=== PATIENT | female | born 1960 | race Caucasian/White ===

== ENCOUNTER 2020-08-10 11:09 | Outpatient (REF) | payer OTHER, SELFPAY ==
[2020-08-10 11:31] LABS: COVID-19 Test Negative (Negative)
== END 2020-08-10 11:10 | disposition home or self-care (01) ==
LOC: HO.EMPCOV 11:09
PROVIDERS: Visit Provider Internal Medicine
DX: Z20.828 Contact with and (suspected) exposure to other viral communicable diseases (principal)
CPT/HCPCS: 87635; C9803

== ENCOUNTER → 2021-05-03 15:58 | Outpatient (BNVA) | payer OTHER, SELFPAY | PROVIDERS: PCP Internal Medicine | DX: Z13.89 Encounter for screening for other disorder (principal) | CPT/HCPCS: 73110; 73564; 99203 ==

== ENCOUNTER → 2021-05-15 09:35 | Outpatient (BNVA) | payer OTHER, SELFPAY | PROVIDERS: PCP Internal Medicine; Visit Provider Physician Assistant Medical | DX: Z13.89 Encounter for screening for other disorder (principal) | CPT/HCPCS: 99213 ==

== ENCOUNTER → 2021-06-05 14:27 | Outpatient (BNVA) | payer OTHER, SELFPAY | PROVIDERS: PCP Internal Medicine; Visit Provider Physician Assistant Medical | DX: Z13.89 Encounter for screening for other disorder (principal) | CPT/HCPCS: 73200; 99213 ==

== ENCOUNTER 2021-06-19 10:00 | Outpatient (RCR) | payer OTHER, SELFPAY ==
--- NOTE | 2021-06-19 10:30 | MHC.OT.EP ---
[address] [phone] Occupational Therapy Plan of Care Date of Evaluation: 06/14/21 Diagnosis: Left wrist injury. Left MCL sprain, cervical strain Assessment: Pt is a 60 yo right hand dominant, petite female now 2 wks s/p fall on bilateral hands. She presents with a complaint of pain on left radial hand and thumb with an xray showing mild MCP arthritis. Pt wearing a prefab wrist splint . Pt now with weakness and difficulty with light daily activities due to bilateral thumb pain. She will benefit from a left hand based thumb spica with her IP jt free for protection and inc ease with daily activities and OT to help regain ROM, strength and function with her left non dominant hand Frequency and Duration: The patient will be seen 2x wk x 4 wks Short Term Goals: Indep with self ROM and light dexterity ex MET Dec pain with use of hand based thumb spica MET Left IP jt flex to > 45 deg MET Demo protected hand strengthening ex MET Snf Goals: Painfree left hand AROM Left die tripper > 15 lb (At 15 lb with pain) Left lat pinch to >8 lb (at 3 lb ) Inc ease with dressing, pulling on clothes, buttons etc Quick DASH to < 30 lb Treatment Plan: Therapeutic Exercise Therapeutic Activity Home Exercise Program Splinting Patient Education ADL Training Paraffin Fluidotherapy MHP Cold Packs Soft Tissue Mobilization Kinesiotaping Electronically Signed By: SHELTON HAWKINS OTR/L Please Sign and return to therapist. Thank you once again for your referral.
== END 2021-06-19 10:32 | disposition home or self-care (01) ==
LOC: HO.OT 10:00
PROVIDERS: Visit Provider Physician Assistant Medical
DX: S16.1XXD Strain of muscle, fascia and tendon at neck level, subsequent encounter (principal); S69.92XD Unspecified injury of left wrist, hand and finger(s), subsequent encounter
CPT/HCPCS: 29130; 97035; 97110; 97140; 97165; 97530; 97760

== ENCOUNTER → 2021-06-21 10:01 | Outpatient (BNVA) | payer OTHER, SELFPAY | PROVIDERS: PCP Internal Medicine; Visit Provider Physician Assistant Medical | DX: Z13.89 Encounter for screening for other disorder (principal) | CPT/HCPCS: 99213 ==

== ENCOUNTER 2021-06-28 09:30 | Outpatient (RCR) | payer OTHER, SELFPAY ==
--- NOTE | 2021-07-25 08:22 | MHC.OT.DC ---
[address] [phone] F: [phone] Occupational Therapy Discharge Note Provider: Arielle Garner PA-C Diagnosis: Left wrist injury. Left MCL sprain, cervical strain Date of Surgery: Date of Evaluation: 05/17/21 Date of Discharge: 07/25/21 Treatments to Date: 11 Cancellations to Date: No Shows to Date: Discharge Status: Independent with HEP Patient Elected to Stop Discharge Summary: Improving jt pain. Dec frequency and dec intensity of pain at 2/10 with avoiding hobbies of gardening, sewing and piano due to fear of injury. Bilateral hand strength low at R 23 lb....L 22 lb Pt expressing feeling she can manage strengthening exercises at home Electronically Signed By: Nicolle Curiel OT CHT CLT Reviewed/agree with student documentation: N/A Therapist: Please Sign and return to therapist, thank you for your referral.
== END 2021-07-25 08:22 | disposition home or self-care (01) ==
LOC: HO.OT 09:30
PROVIDERS: Visit Provider Physician Assistant Medical
DX: S69.92XD Unspecified injury of left wrist, hand and finger(s), subsequent encounter (principal)
CPT/HCPCS: 97110

== ENCOUNTER 2021-07-03 16:00 | Outpatient (RCR) | payer OTHER, SELFPAY ==
--- NOTE | 2021-05-22 17:12 | MHC.PT.EP ---
[facility] [place] [facility] [place] [facility] [place] Office [address] Deidre Paniagua [address] [phone] F: [phone] F: [phone] F: [phone] F: [phone] Physical Therapy Plan of Care Date of Evaluation: Date of Surgery: n/a Diagnosis: L MCL sprain Assessment: Patient is a 60 year old female presenting to PT with complaints of pain in her L knee. Pt reports onset of pain began 05/03/2021 due to slipping and falling. She presents today with impairments in pain, knee strength, hip strength, and balance impairments. 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 Pt expresses senior care goal of getting back to PLOF, and is motivated to work towards this in PT. Clinical presentation today is most consistent with signs and sx associated with possible L MCL sprain and pt will benefit from skilled PT to address the following problems and impairments noted upon evaluation: knee strength, balance, hip strength, quad muscle length, and pain. These problems limit the patient with the following functional activities: work, ambulation, stair negotiation, squatting, jumping, yoga. The prescribed treatment plan of care is medically necessary. Co-morbidities of osteopenia were identified and taken into considerations of plan of care. Pt was educated on HEP, role of PT, prognosis, POC. Frequency and Duration: The patient will be seen 2x week for 4 weeks Short Term Goals: Pt will demonstrate improved hip strength by 1/3 MMT in 2 weeks for improved tolerance to stair negotiation. Pt will demonstrate independence with HEP in 2 weeks. Pt will demonstrate improved quad muscle length on L to equal B as evidence by negative prone quad test in 2 weeks. Pt will demonstrate ability to perform SLS on L x 30 sec with min sway in 2 weeks for improved single limb stability with gait and stairs. Block Breaker Goals: Pt will demonstrate ability to ambulate >10 min with min to no reports of pain in 4 weeks to improve access to the community and walking from the parking lot to work. 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 Pt will demonstrate ability to perform jumping jacks with min to no pain in 4 weeks to allow return to prior level of exercise function. Pt will demonstrate ability to perform a squat with good mechanics and min to no pain in 4 weeks to improve tolerance to picking up objects off the floor. Treatment Plan: Modalities to reduce pain, spasms and effusion. Manual therapy to restore motion and function. Therapeutic exercise to improve strength and flexibility. Neuromuscular re-education for posture and balance. Therapeutic activities to return to functional activities of daily living. Electronically signed by: Divine Beach, PT, DPT, ATC Please sign and return to therapist. Thank you for your referral.
--- NOTE | 2021-07-03 17:11 | MHC.PT.DC ---
[facility] [place] Office [place] Office [place] Office [address] Deidre Paniagua [address] [phone] F: [phone] F: [phone] F: [phone] F: [phone] Physical Therapy Discharge Report Diagnosis: L MCL sprain Date of Surgery: n/a Date of Evaluation: 05/22/21 Date of Discharge: 07/03/21 Treatments to Date: 12 Cancellations to Date: 0 No Shows to Date: 0 Discharge Status: Achieved Goals Improved Function Independent with HEP Discharge Summary: Pt has made good progress with skilled PT. She is no longer experiencing pain at rest and has met the majority of her functional goals. She does still have some low level pain at times when doing things that involving deep squats and jumping activities but in general she has improved greatly functionally. She is independent and compliant with her HEP. At this time max benefits of PT have been provided and skilled PT is no longer indicated at this time. Pt is in agreement with d/c today and understands importance of continuing with her HEP. Electronically signed by: Divine Beach, PT, DPT, ATC Please sign and return to therapist. Thank you for your referral.
== END 2021-07-03 17:12 | disposition home or self-care (01) ==
LOC: HO.PT 16:00
PROVIDERS: Visit Provider Physician Assistant Medical
DX: S16.1XXD Strain of muscle, fascia and tendon at neck level, subsequent encounter (principal); S69.92XD Unspecified injury of left wrist, hand and finger(s), subsequent encounter; S13.9XXD Sprain of joints and ligaments of unspecified parts of neck, subsequent encounter
CPT/HCPCS: 97110; 97140; 97161; 97530

== ENCOUNTER → 2021-07-10 09:38 | Outpatient (BNVA) | payer OTHER, SELFPAY | PROVIDERS: PCP Internal Medicine; Visit Provider Physician Assistant Medical | DX: Z13.89 Encounter for screening for other disorder (principal) | CPT/HCPCS: 99213 ==

== ENCOUNTER 2022-02-19 13:59 | Outpatient (REF) | payer OTHER, SELFPAY ==
--- NOTE | 2022-02-19 16:47 | MHC.AU.ANR ---
Adult Audiological Evaluation Date of Visit: 02/19/22 Reason for Appointment: Audiological evaluation due to concern for decreased hearing. Sandhya reports that her hearing seems to be gradually decreasing, with noted difficulties hearing over the past year. Sandhya notes that she often has to ask people to repeat themselves, she's turning the TV volume up, and she has difficulty in the presence of background noise. She states that her right ear feels full and blocked. She reports tinnitus in the left ear only. Does patient feel they have a hearing loss?: Yes If Yes, Which Ear?: Both Ears When Was Hearing Difficulty First Noticed?: ~1 year ago Has hearing been tested previously?: Yes Previous Hearing Test Results: Hearing screening at our clinic in 2000 indicated normal hearing bilaterally from 500-4000 Hz. Hearing Handicap Inventory: HHIE SCORE: 28 Based on HHIE score, patient has: Severe perceived hearing handicap Ear History: Bothersome Tinnitus/Ringing/Noises in Ears: Left Ear Blocked/Full Sensation in Ear(s): Right Ear Medical History: Medical History: Dizziness or Unsteadiness Allergies: cimetidine, ampicillin Medication List: Calcium alterate 1500 mg + 1000 mg daily (with Vitamin D), Pseudoephedrine 30 mg q 6hr PRN, diphenhydramine 25 mg q 6hr PRN, Tylenol 500 mg-1 gm q 4-6 hr PRN Otoscopy: Right Ear: Tympanic membrane is retracted Left Ear: Unremarkable Tympanometry: Tympanometry performed due to: Patient reports sensation of aural fullness Right Ear: Normal Middle Ear System (Type A) Left Ear: Normal Middle Ear System (Type A) Hearing Evaluation: Transducer(s) Used: Insert Earphones, Bone Conduction Method: Conventional Audiometry Stimuli Used: Pure Tones Right Ear: Description of Hearing: Normal hearing from 250-2000 Hz, sloping to a mild to moderate sensorineural hearing loss from 9169-2660 Hz. Left Ear: Description of Hearing: Normal hearing from 250-1000 Hz, sloping to a mild to moderate sensorineural hearing loss from 1857-1472 Hz. Hearing in the left ear is slightly worse than the right, by 15 dBHL at 4000 Hz and 10 dBHL at 6000 Hz. Speech Recognition Threshold (SRT): Method Used: Monitored Live Voice Stimuli Used: Spondee Words Right Ear: 20 dBHL Left Ear: 20 dBHL Word Discrimination: Method: Recorded Lists Word Lists Used: NU-6 Right Ear: 100% at 60 dBHL Left Ear: 100% at 60 dBHL Interpretation of Results: Today's evaluation indicates a mild to moderate, high-frequency, sensorineural hearing loss bilaterally, with the left ear hearing slightly worse than the right. Although tympanometry is normal, otoscopy indicates a retracted right tympanic membrane, which may be causing feelings of aural fullness. Sandhya is likely to communicate well when in quiet environments, small group settings, and when she is able to see the speakers face. Hearing loss of this degree can cause difficulties understanding speech when in the presence of background noise, when in larger group, when she cannot see the speaker's face, or when listening at a distance. Recommendations: Audiological re-evaluation in one year. Trial with amplification is recommended. Given the slight asymmetry in the left ear and unilateral tinnitus, recommend monitoring hearing annually. Sandhya is considered a borderline candidate for amplification. Given the hearing difficulties and concerns she expressed, she would likely find benefit from use of amplification. Discussed hearing aid styles and technologies, including [id number] products. It is recommended that Sandhya contact her health insurance company to determine if she has any hearing aid coverage. She was welcomed to return for a hearing aid consultation if she decides she would like to pursue hearing aids through our clinic. Diagnosis: Primary Diagnosis: H90.3 Bilateral Sensorineural Hearing Loss Secondary Diagnosis: H93.12 Tinnitus, Left Ear Services Performed: Services Performed: Comprehensive Audiological Evaluation (CPT 55962) Tympanometry (CPT 58246) Signature: Provider: Rashard Willett, [facility]
== END 2022-02-19 14:00 | disposition home or self-care (01) ==
LOC: HO.SH 13:59
PROVIDERS: Visit Provider Internal Medicine
DX: Z01.118 Encounter for examination of ears and hearing with other abnormal findings (principal); H90.3 Sensorineural hearing loss, bilateral; H93.12 Tinnitus, left ear
CPT/HCPCS: 92557; 92567

== ENCOUNTER 2022-09-12 12:00 | Outpatient (RCR) | payer OTHER, SELFPAY | END 2022-10-03 15:35 | disposition home or self-care (01) | LOC: HO.PT 12:00 | PROVIDERS: Visit Provider Nurse Practitioner Family | DX: M54.50 Low back pain, unspecified (principal) | CPT/HCPCS: 95992; 97110; 97140; 97161 ==

== ENCOUNTER → 2023-02-07 12:33 | Outpatient (BNVA) | payer OTHER, SELFPAY | PROVIDERS: PCP Internal Medicine | DX: Z13.89 Encounter for screening for other disorder (principal) | CPT/HCPCS: 12001; 99202 ==

== ENCOUNTER 2023-08-05 14:18 | Emergency (ER) | payer OTHER, SELFPAY ==
--- NOTE | 2023-08-05 14:22 | ECG_ITS ---
Test Reason : SYNCOPE Blood Pressure : / mmHG Vent. Rate : 085 BPM Atrial Rate : 085 BPM P-R Int : 126 ms QRS Dur : 080 ms QT Int : 386 ms P-R-T Axes : 075 011 060 degrees QTc Int : 459 ms Normal sinus rhythm Possible Left atrial enlargement Borderline ECG No previous ECGs available Referred By: Generic ED Physician Electronically Signed By:ANGELICA MARLOW
--- NOTE | 2023-08-05 14:30 | ED_ITS ---
HPI - Syncope General Chief Complaint: Syncope Stated Complaint: Syncopal Time Seen by Provider: 08/05/23 14:30 Source: patient, RN notes reviewed and old records reviewed Mode of arrival: wheelchair History of Present Illness HPI narrative: 62-year-old female with no significant medical history presenting to the ED from [facility] for presyncopal episode [employer]. Patient was at work, felt lightheaded, paresthesias in hands and feet, nauseous, and diarrhea, then was brought to the ED by coworkers. denies LOC. Admits to donating blood this morning around 11:00AM, has donated in the past however has been multiple years. Reports mild headache. Denies chest pain/shortness of breath, abdominal pain, vomiting, vision loss, fever/chills. Admits to viral syndrome 2 weeks ago. MD complaint: felt faint Related Data Allergies Allergy/AdvReac Type Severity Reaction Status Date / Time ampicillin Allergy Hives Verified 08/05/23 14:41 ceftaroline fosamil Allergy Hives Verified 08/05/23 14:41 Review of Systems 2 Review of Systems: Constitutional: No Fever, No Chills, + Fatigue, + Malaise ENT/Mouth: No Ear Pain, No Nasal Congestion, No Sinus Pain, No Hoarseness, No sore throat, No Rhinorrhea, No Swallowing Difficulty Eyes: No Eye Pain, No Swelling, No Redness, No Vision Changes Cardiovascular: No Chest Pain, No SOB, No Edema, No Palpitations Respiratory: No Cough, No Sputum, No Wheezing, No Smoke Exposure, No Dyspnea Gastrointestinal: + Nausea, No Vomiting, + Diarrhea, No Constipation, No Abdominal pain Genitourinary: No Dysuria, No Urinary Frequency, No Hematuria, No Flank Pain Musculoskeletal: No joint pain, No Myalgias, No Joint Swelling Skin: No Skin Lesions, No rash Neuro: No Weakness, No Numbness, No Paresthesias, No Loss of Consciousness, + lightheaded, + Headache Yes all other systems are reviewed and are negative Constitutional: Constitutional: Reports as per HPI Neurologic: Denies Abnormal speech present [facility] Past Medical History Attestation statement: The following information was validated with the patient. Source: old records reviewed Medical History (Updated 08/05/23 @ 16:08 by FERNANDA Faulkner) Headache Social History Social History Smoked in Last 30 Days: No Use of substances other than those prescribed or required for medical reasons: No Advance Directives: No Advance Directives Information Provided: No Patient : No Physical Exam 2 Vital Signs: Vital Signs: Last Vital Signs Temp 98.4 F 08/05/23 17:05 Pulse 95 08/05/23 18:00 Resp 18 08/05/23 18:00 BP 126/40 L 08/05/23 18:00 Pulse Ox 99 08/05/23 18:00 O2 Del Method Room Air 08/05/23 18:00 BMI result Body Mass Index 22.7 Const: General: cooperative, healthy appearing and no acute distress O rientation/consciousness: patient oriented x3 Limitations: no limitations HEENT: Head: Yes normal to inspection and Yes atraumatic Ears: hearing grossly normal bilaterally General nose exam: Normal external nose present Face and sinus: Yes normal facial exam Mouth: Normal oral and palatal mucosa present Throat: Yes posterior oropharynx normal, Yes tonsils normal and Yes uvula midline Eyes: General: appearance normal, both eyes and all related structures P upils: Equal, round and reactive pupils present EOM: EOMs intact bilaterally Neck: Neck: Yes normal visual inspection and Yes no meningeal signs Resp: Effort & Inspection: normal respiratory effort and no respiratory distress Auscultation: clear to auscultation bilaterally, no rales, no rhonchi and no wheezes Cardio: Rate: regular rate Heart sounds: S1 normal heart sound present and S2 normal heart sound present GI: Inspection: Yes normal to inspection Palpation (GI): Soft to palpation, nontender, no guarding and not rigid Skin: Rashes: no rashes Wounds: no wounds Neuro: General: patient oriented x3, tone normal, moves all extremities, no meningeal signs, no focal motor deficits and CN's II-XI intact bilaterally C ranial nerves: Yes CN's II-XII intact bilaterally and Yes Equal, round and reactive pupils present Cognition (Neuro): normal cognition Speech: No Abnormal speech present Motor exam (neuro): 5/5 motor strength present throughout and no tremor noted Extrem: General: Yes normal to inspection Course Course Course Narrative: -1604--H&H slightly lower than baseline 11.5/34.3 >> patient did donate blood today. Likely cause -initial troponin negative will obtain 3 hour repeat. COVID and flu negative. Orthostatic vital signs negative -1630--ED care transferred to [facility] pending repeat troponin Reevaluation(s) Reevaluation #1: Delta troponin negative. Stable for discharge. Outpatient follow-up with primary care provider. Reviewed worrisome signs and symptoms that would warrant re-evaluation in emergency department. All questions answered. Ambulatory with a steady gait. Time: 19:33 Medications Administered Discontinued Medications Generic Name Dose Route Start Last Admin Trade Name Freq PRN Reason Stop Dose Admin Sodium Chloride 1,000 mls @ 999 mls/hr 08/05/23 14:45 08/05/23 16:20 Ns IV 08/05/23 15:45 Infused .Q1H1M FRANCOISE Infusion Medical Decision Making Medical Decision Making [facility] Narrative: 62-year-old female with no significant medical history presenting to the ED from [facility] [place] for presyncopal episode [employer]. Patient was at work, felt lightheaded, paresthesias in hands and feet, nauseous, and diarrhea, then was brought to the ED by coworkers. denies LOC. On exam vital signs stable, NAD, reports symptomatic improvement at present. On ED arrival patient wheel-chaired by coworkers/pale, but at present skin color has returned. Concern for presyncope/vasovagal vs dehydration vs orthostasis vs anemia vs gastroenteritis vs viral syndrome. Lower suspicion for ACS/PE or ICH/CVA Plan: EKG, labs, UA, CXR, orthostatics, IVF, viral testing, re-evaluate Please refer to course for remaining clinical decision making, interpretation of labs/imaging results, and discussions with consultants and/or family members. Differential Diagnosis Differential Diagnoses: The differential diagnosis associated with the presentation includes As above Admission/Observation Consideration of admission/observation: Escalation of care including admission/observation considered Lab Data [facility] Lab Attestation statement: I reviewed the patient's lab results. 08/05/23 14:47 08/05/23 14:47 Labs: Lab Results 08/05/23 08/05/23 08/05/23 Range/Units 14:29 14:46 14:47 WBC 5.7 (4.8-10.8) X10*3/uL RBC 3.85 L (4.20-5.50) X10*6/uL Hgb 11.5 L (12.0-16.0) g/dl Hct 34.3 L (37.0-47.0) % MCV 89.1 (80.0-98.0) fL MCH 29.9 (27.0-33.0) pg MCHC 33.5 (31.0-35.0) g/dl RDW 13.7 (11.0-16.0) % Plt Count 227 (160-400) X10*3/uL MPV 10.7 (9.4-12.3) fL Immature Gran % (Auto) 0.2 (0.0-0.4) % Neut % (Auto) 58.6 (45-73) % Lymph % (Auto) 32.3 (20-40) % [place] % (Auto) 7.2 (2-11) % Eos % (Auto) 1.2 (0-4) % Baso % (Auto) 0.5 (0-2) % Lymph # (Auto) 1.8 (1.2-4.9) X10*3/uL [place] # (Auto) 0.4 (0.1-1.2) X10*3/uL Eos # (Auto) 0.1 (0.0-0.4) X10*3/uL Baso # (Auto) 0.0 (0.0-0.2) X10*3/uL Abs Immat Gran (auto) 0.01 (0.00-0.03) X10*3/uL Absolute Neuts (auto) 3.3 (2.0-8.3) x10*3/uL Absolute Nucleated RBC 0.000 (0.0-0.012) X10*3/uL Nucleated RBC % (auto) 0.0 (0.0-0.2) /100WBC Sodium 142 (135-145) mmol/L Potassium 3.9 (3.3-5.1) mmol/L Chloride 111 H (96-108) mmol/L Carbon Dioxide 26 (22-29) mmol/L Anion Gap 9 L (12-20) BUN 11 (9-16) mg/dL Creatinine 0.73 (0.5-1.4) mg/dL Estim Creat Clear Calc 76.7 Estimated GFR > 60 POC Glucose 113 (60-115) mg/dL Random Glucose 163 H (60-115) mg/dL Calcium 8.9 (8.4-10.2) mg/dL Magnesium 1.8 (1.6-2.6) mg/dL Total Bilirubin 0.9 (0.0-1.0) mg/dL Direct Bilirubin 0.3 (0.0-0.5) mg/dL AST 19 (5-31) U/L ALT 12 (0-31) U/L Alkaline Phosphatase 37 L (39-117) U/L Troponin I High Sens < 2.7 (<3.5-17.0) ng/L Total Protein 5.8 L (6.5-8.0) g/dL Albumin 3.7 (3.5-5.0) g/dL Urine Color Urine Appearance Urine pH (5.0-9.0) Ur Specific [place] (1.005-1.025) Urine Protein (Neg-Trace) mg/dL Urine Glucose (UA) (Negative) mg/dL Urine Ketones (Negative) mg/dL Urine Blood (Negative) Urine Nitrite (Negative) Ur Leukocyte Esterase (Negative) COVID-19 (JESSICA) Negative (Negative) COVID-19 Clin Com See Note Influenza Type A (KOBI) Negative (Negative) Influenza Type B (KOBI) Negative (Negative) Influenza A & B Note See Note 08/05/23 08/05/23 Range/Units 18:19 18:26 WBC (4.8-10.8) X10*3/uL RBC (4.20-5.50) X10*6/uL Hgb (12.0-16.0) g/dl Hct (37.0-47.0) % MCV (80.0-98.0) fL MCH (27.0-33.0) pg MCHC (31.0-35.0) g/dl RDW (11.0-16.0) % Plt Count (160-400) X10*3/uL MPV (9.4-12.3) fL Immature Gran % (Auto) (0.0-0.4) % Neut % (Auto) (45-73) % Lymph % (Auto) (20-40) % [place] % (Auto) (2-11) % Eos % (Auto) (0-4) % Baso % (Auto) (0-2) % Lymph # (Auto) (1.2-4.9) X10*3/uL [place] # (Auto) (0.1-1.2) X10*3/uL Eos # (Auto) (0.0-0.4) X10*3/uL Baso # (Auto) (0.0-0.2) X10*3/uL Abs Immat Gran (auto) (0.00-0.03) X10*3/uL Absolute Neuts (auto) (2.0-8.3) x10*3/uL Absolute Nucleated RBC (0.0-0.012) X10*3/uL Nucleated RBC % (auto) (0.0-0.2) /100WBC Sodium (135-145) mmol/L Potassium (3.3-5.1) mmol/L Chloride (96-108) mmol/L Carbon Dioxide (22-29) mmol/L Anion Gap (12-20) BUN (9-16) mg/dL Creatinine (0.5-1.4) mg/dL Estim Creat Clear Calc Estimated GFR POC Glucose (60-115) mg/dL Random Glucose (60-115) mg/dL Calcium (8.4-10.2) mg/dL Magnesium (1.6-2.6) mg/dL Total Bilirubin (0.0-1.0) mg/dL Direct Bilirubin (0.0-0.5) mg/dL AST (5-31) U/L ALT (0-31) U/L Alkaline Phosphatase (39-117) U/L Troponin I High Sens < 2.7 (<3.5-17.0) ng/L Total Protein (6.5-8.0) g/dL Albumin (3.5-5.0) g/dL Urine Color Straw Urine Appearance Clear Urine pH 7.0 (5.0-9.0) Ur Specific [place] 1.010 (1.005-1.025) Urine Protein Negative (Neg-Trace) mg/dL Urine Glucose (UA) Negative (Negative) mg/dL Urine Ketones Negative (Negative) mg/dL Urine Blood Negative (Negative) Urine Nitrite Negative (Negative) Ur Leukocyte Esterase Negative (Negative) COVID-19 (JESSICA) (Negative) COVID-19 Clin Com Influenza Type A (KOBI) (Negative) Influenza Type B (KOBI) (Negative) Influenza A & B Note Independent Interpretation I performed an independent interpretation of an: EKG Radiology Impression Discussion of test interpretation with radiology: I have reviewed the radiologist's reading. Independent Historian Clinical information obtained from an independent historian. History obtained from or confirmed by: Other External Record Review External record reviewed: Inpatient record, Office record, Outpatient record, Prior outpatient labs, Prior outpatient radiology, Primary care record and Outside ED record Tests considered The following testing was considered but not selected: As above Discharge Plan Discharge Clinical Impression: Pre-syncope Patient Disposition: Home, Self-Care Instructions: Near Syncope (ED) Additional Instructions: Please stay hydrated at home Follow-up with your doctor If symptoms persist or worsen or you pass out please return to the emergency department Referrals: Cyndy Desai MD [Primary Care Provider] - 5 days
[2023-08-05 14:36] VITALS: BP 113/75; PULSE 93; RESP 16; TEMP 36.8; O2SAT 100; BMI 22.7
[2023-08-05 14:39] LABS: Glucose, Whole Blood 113 mg/dL (60-115)
[2023-08-05 14:53] LABS: MANUAL DIFF FLAG NO
[2023-08-05 14:56] LABS: Basophils Percent Auto 0.5 % (0-2); Eosinophils Absolute Auto 0.1 X10*3/uL (0.0-0.4); Eosinophils Percent Auto 1.2 % (0-4); Hematocrit 34.3 % (37.0-47.0); Hemoglobin 11.5 g/dl (12.0-16.0); Imm Gran Abs Auto 0.01 X10*3/uL (0.00-0.03); Imm Gran Pct Auto 0.2 % (0.0-0.4); Lymphocytes Absolute Auto 1.8 X10*3/uL (1.2-4.9); Lymphocytes Percent Auto 32.3 % (20-40); Mean Corpuscular HGB Conc 33.5 g/dl (31.0-35.0); Mean Corpuscular Hemoglobin 29.9 pg (27.0-33.0); Mean Corpuscular Volume 89.1 fL (80.0-98.0); Mean Platelet Volume 10.7 fL (9.4-12.3); Monocytes Absolute Auto 0.4 X10*3/uL (0.1-1.2); Monocytes Percent Auto 7.2 % (2-11); Neutrophils Absolute Auto 3.3 x10*3/uL (2.0-8.3); Neutrophils Percent Auto 58.6 % (45-73); Platelet Count 227 X10*3/uL (160-400); Red Blood Count 3.85 X10*6/uL (4.20-5.50); Red Cell Distribution Width 13.7 % (11.0-16.0); White Blood Count 5.7 X10*3/uL (4.8-10.8)
[2023-08-05 14:57] VITALS: BP 109/48; PULSE 69
[2023-08-05 14:58] VITALS: BP 115/43; BP 94/51; PULSE 80; PULSE 93
[2023-08-05 15:12] LABS: Alanine Aminotransferase 12 U/L (0-31); Albumin Level 3.7 g/dL (3.5-5.0); Alkaline Phosphatase 37 U/L (39-117); Anion Gap 9 (12-20); Aspartate Amino Transferase 19 U/L (5-31); Bilirubin Direct 0.3 mg/dL (0.0-0.5); Bilirubin Total 0.9 mg/dL (0.0-1.0); Blood Urea Nitrogen 11 mg/dL (9-16); Calcium 8.9 mg/dL (8.4-10.2); Carbon Dioxide 26 mmol/L (22-29); Chloride 111 mmol/L (96-108); Creatinine Clr Calc Pharmacy 76.7; Estimated Glomerular Filt Rate > 60; Glucose Random 163 mg/dL (60-115); Magnesium 1.8 mg/dL (1.6-2.6); Potassium 3.9 mmol/L (3.3-5.1); Sodium 142 mmol/L (135-145); Total Protein 5.8 g/dL (6.5-8.0)
[2023-08-05 15:16] LABS: COVID-19 Test Negative (Negative); IDNOW Serial# 9DB6401D; IDNOW Serial# BCCEAD1C; Influenza A Negative (Negative); Influenza B2 Negative (Negative)
[2023-08-05] MEDS: 0.9 % Sodium Chloride 1,000 ML 999 ML IV (15:17)
[2023-08-05 15:19] VITALS: O2SAT 100
[2023-08-05 15:25] LABS: Troponin-I High Sensitivity < 2.7 ng/L (<3.5-17.0)
--- NOTE | 2023-08-05 15:30 | PC.NURSE ---
patient a&ox3, iv inserted, labs previously drawn, ekg previously performed, gambling monitor intact- nsr, ivf hanging per order, call conroy within reach, will continue to monitor
[2023-08-05 17:05] VITALS: BP 132/49; PULSE 86; RESP 14; TEMP 36.9; O2SAT 100
--- NOTE | 2023-08-05 17:16 | PC.NURSE ---
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 pt states she doesnt feel herself still and would like her food from the pharmacy, this nurse spoke with the provider and obtained PO from the fridge for the patient and she was told when her next lab draw would be done, currently vitals are stable, call conroy is within reach and our clinical coordinator will be notified of the patients dissatisfaction of the current situation.
[2023-08-05 18:00] VITALS: BP 126/40; PULSE 95; RESP 18; O2SAT 99
--- NOTE | 2023-08-05 18:28 | PC.NURSE ---
patient ambulated with stby assist to bathroom- pt had steady gait, pt was then brought back into the room and connected back up to the playground monitor, pt earlier in the day had requested to have the BP cuff left on, this nurse reconnected the BP cuff and pt complained that the BP cuff had left a small bruise on her arm, this nurse asked if she would like to have the BP cuff put back on, per pt request bp cuff was placed back on the same arm she was complaining about. playground monitor nsr, vss, call conroy within reach, will continue to monitor
[2023-08-05 18:38] LABS: Appearance Urine Clear; Color Urine Straw; Glucose Urine UA Negative (Negative); Leukocyte Esterase Urine Negative (Negative); Nitrite Urine Negative (Negative); Urine Blood Negative (Negative); Urine Ketones Negative (Negative); Urine Protein Negative (Neg-Trace)
[2023-08-05 18:44] LABS: Troponin-I High Sensitivity < 2.7 ng/L (<3.5-17.0)
== END 2023-08-05 19:47 | disposition home or self-care (01) ==
PROVIDERS: Physician Assistant; Emergency Provider Emergency Medicine; PCP Internal Medicine
DX: R55 Syncope and collapse (principal); R51.9 Headache, unspecified; R11.2 Nausea with vomiting, unspecified; R94.31 Abnormal electrocardiogram [ECG] [EKG]; Z79.899 Other long term (current) drug therapy; Z11.52 Encounter for screening for COVID-19; Z20.822 Contact with and (suspected) exposure to COVID-19
CPT/HCPCS: 36415; 80048; 80076; 81003; 82947; 83735; 84484; 85025; 87502; 87635; 93005; 96360; 99284; 99285

== ENCOUNTER → 2023-08-05 14:22 | Outpatient (BNV) | payer OTHER, SELFPAY | PROVIDERS: Emergency Provider Emergency Medicine; PCP Internal Medicine; Visit Provider Internal Medicine | DX: R55 Syncope and collapse (principal) | CPT/HCPCS: 93010 ==

== ENCOUNTER → 2025-02-25 15:39 | Outpatient (BNVA) | payer OTHER, SELFPAY | PROVIDERS: PCP Internal Medicine; Visit Provider Physician Assistant Medical | DX: Z13.89 Encounter for screening for other disorder (principal) | CPT/HCPCS: 99202 ==

== ENCOUNTER → 2025-03-01 09:34 | Outpatient (BNVA) | payer OTHER, SELFPAY | PROVIDERS: PCP Internal Medicine; Visit Provider Internal Medicine | DX: Z13.89 Encounter for screening for other disorder (principal) | CPT/HCPCS: 99213 ==

== ENCOUNTER → 2025-03-03 11:21 | Outpatient (BNVA) | payer OTHER, SELFPAY | PROVIDERS: PCP Internal Medicine; Visit Provider Internal Medicine | DX: Z13.89 Encounter for screening for other disorder (principal) | CPT/HCPCS: 70450; 99213 ==

== ENCOUNTER → 2025-03-08 10:47 | Outpatient (BNVA) | payer OTHER, SELFPAY | PROVIDERS: PCP Internal Medicine; Visit Provider Internal Medicine | DX: Z13.89 Encounter for screening for other disorder (principal) | CPT/HCPCS: 99213 ==

== ENCOUNTER → 2025-03-22 11:03 | Outpatient (BNVA) | payer OTHER, SELFPAY | PROVIDERS: PCP Internal Medicine; Visit Provider Physician Assistant Medical | DX: Z13.89 Encounter for screening for other disorder (principal) | CPT/HCPCS: 99213 ==